=== PATIENT | female | born 1995 | race Caucasian/White ===

== ENCOUNTER 2017-11-22 11:50 | Inpatient (IN) | payer OTHER ==
[2017-11-22 12:57] LABS: ADD MAN DIFF? NO
[2017-11-22 12:59] LABS: WHITE BLOOD COUNT 6.5 10^3/ul (4.8-10.8)
[2017-11-22 12:59] LABS: BASOPHILS % 0.6 % (0.0-2.0); EOSINOPHILS # 0.1 10^3/ul (0.0-0.5); EOSINOPHILS % 0.9 % (0.0-7.0); HEMATOCRIT 35.5 % (37.0-47.0); HEMOGLOBIN 11.2 g/dl (12.0-16.0); LYMPHOCYTES % 30.9 % (15.0-51.0); MEAN CORPUSCULAR HEMOGLOBIN 25.2 pg (29.0-33.0); MEAN CORPUSCULAR HGB CONC 31.5 g/dl (32.0-37.0); MEAN PLATELET VOLUME 11.9 fl (7.4-10.4); MONOCYTE # 0.4 10^3/ul (0.3-0.9); MONOCYTES % 6.7 % (0.0-11.0); NEUTROPHIL # 3.9 10^3/ul (1.6-7.5); NEUTROPHILS % 60.3 % (39.0-77.0); PLATELET COUNT 168 10^3/UL (140-415); RED BLOOD COUNT 4.44 10^6/ul (4.20-5.40); RED CELL DISTRIBUTION WIDTH 13.9 % (11.5-14.5)
[2017-11-22] MEDS ORDERED: OXYTOCIN 30 UNITS/LR 500 ML IV (13:00)
[2017-11-22] MEDS ORDERED: METHYLERGONOVINE 0.2 MG INJ IM (13:00)
[2017-11-22] MEDS ORDERED: LIDOCAINE 1% (MPF) 30 ML INJ INJ (13:00)
[2017-11-22] MEDS ORDERED: BUTORPHANOL 2 MG INJ IV (13:00)
[2017-11-22] MEDS ORDERED: CARBOPROST 250 MCG INJ IM (13:00)
[2017-11-22] MEDS ORDERED: MISOPROSTOL 200 MCG TAB PR (13:00)
[2017-11-22] MEDS: LACTATED RINGER'S 1,000 ML IV ×5 (13:01→21:22)
[2017-11-22 13:28] LABS: PROTIME 12.2 Sec (11.9-14.9)
[2017-11-22 13:29] LABS: PARTIAL THROMBOPLASTIN TIME 26.3 Sec (25.0-35.0)
[2017-11-22 13:50] LABS: HEPATITIS B SURFACE ANTIGEN NEGATIVE (NEGATIVE)
[2017-11-22] MEDS ORDERED: FENTAnyl 2MCG/ML-ROPIV 0.2% 100 ML (13:57)
[2017-11-22] MEDS: OXYTOCIN 30 UNITS/LR 500 ML IV ×3 (17:13→22:43)
[2017-11-22 21:05] LABS: RAPID PLASMA REAGIN NONREACTIVE (NR)
[2017-11-22] MEDS: MINERAL OIL LIGHT 10 ML VIAL TOP (22:28)
[2017-11-23] MEDS: LACTATED RINGER'S 1,000 ML IV* ×3 (00:16→16:16)
[2017-11-23] MEDS ORDERED: OXYCODONE/ACETAMINOPHEN (5/325) TAB PO ×2 (00:30)
[2017-11-23] MEDS ORDERED: MISOPROSTOL 200 MCG TAB PR (00:30)
[2017-11-23] MEDS ORDERED: METHYLERGONOVINE 0.2 MG INJ IM (00:30)
[2017-11-23] MEDS ORDERED: CARBOPROST 250 MCG INJ IM (00:30)
[2017-11-23] MEDS ORDERED: OXYTOCIN 30 UNITS/LR 500 ML IV (00:30)
[2017-11-23] MEDS: IBUPROFEN 600 MG TAB PO ×4 (01:08→17:55)
[2017-11-23] MEDS: OXYTOCIN 30 UNITS/LR 500 ML IV (02:02)
[2017-11-23 08:32] LABS: ADD MAN DIFF? NO
[2017-11-23 08:34] LABS: BASOPHILS % 0.3 % (0.0-2.0); EOSINOPHILS # 0.1 10^3/ul (0.0-0.5); EOSINOPHILS % 0.9 % (0.0-7.0); HEMATOCRIT 31.4 % (37.0-47.0); HEMOGLOBIN 10.2 g/dl (12.0-16.0); LYMPHOCYTES # 1.9 10^3/ul (0.8-2.9); LYMPHOCYTES % 19.6 % (15.0-51.0); MEAN CORPUSCULAR HEMOGLOBIN 25.7 pg (29.0-33.0); MEAN CORPUSCULAR HGB CONC 32.5 g/dl (32.0-37.0); MEAN CORPUSCULAR VOLUME 79.1 fl (82.0-101.0); MEAN PLATELET VOLUME 11.7 fl (7.4-10.4); MONOCYTE # 0.6 10^3/ul (0.3-0.9); MONOCYTES % 6.2 % (0.0-11.0); NEUTROPHIL # 6.9 10^3/ul (1.6-7.5); NEUTROPHILS % 72.6 % (39.0-77.0); PLATELET COUNT 136 10^3/UL (140-415); RED BLOOD COUNT 3.97 10^6/ul (4.20-5.40); RED CELL DISTRIBUTION WIDTH 13.7 % (11.5-14.5)
[2017-11-23 08:34] LABS: WHITE BLOOD COUNT 9.5 10^3/ul (4.8-10.8)
[2017-11-23] MEDS: LANOLIN 7 GM TUBE TOP (08:45)
[2017-11-23] MEDS: BENZOCAINE 20% 56 ML SPRAY TOP (08:45)
[2017-11-23] MEDS: SENNA/DOCUSATE NA (8.6MG/50MG) TAB PO ×2 (08:46→21:10)
[2017-11-23] MEDS: WITCH HAZEL/GLYCERIN PAD PR (08:46)
[2017-11-24] MEDS: IBUPROFEN 600 MG TAB PO ×3 (00:37→12:16)
[2017-11-24] MEDS: BENZOCAINE 20% 56 ML SPRAY TOP (00:37)
[2017-11-24] MEDS: DIBUCAINE 1% 30 GM OINT PR (00:39)
[2017-11-24] MEDS: SENNA/DOCUSATE NA (8.6MG/50MG) TAB PO (08:33)
[2017-11-24] MEDS ORDERED: MEASLES,MUMPS,RUBELLA VACCINE INJ SC* (13:30)
[2017-11-24] MEDS: MEASLES,MUMPS,RUBELLA VACCINE INJ SC* (13:32)
== END 2017-11-24 14:15 | disposition home or self-care (01) | DRG 775 ==
LOC: OBT 11:50 → PP1 11-23 01:00 → L-D 11:51 → OBT 12:15 → L-D 12:15
PROVIDERS: Obstetrics & Gynecology
PROC: 10E0XZZ Delivery of Products of Conception, External Approach (ICD-10-PCS; principal; 2017-11-22)
PROC: 0HQ9XZZ Repair Perineum Skin, External Approach (ICD-10-PCS; 2017-11-22)
PROC: 4A1HXCZ Monitoring of Products of Conception, Cardiac Rate, External Approach (ICD-10-PCS; 2017-11-22)
PROC: 10H07YZ Insertion of Other Device into Products of Conception, Via Natural or Artificial Opening (ICD-10-PCS; 2017-11-22)
DX: O76 Abnormality in fetal heart rate and rhythm complicating labor and delivery (principal); O69.81X0 Labor and delivery complicated by cord around neck, without compression, not applicable or unspecified; O70.0 First degree perineal laceration during delivery; Z37.0 Single live birth; Z3A.38 38 weeks gestation of pregnancy
CPT/HCPCS: 62319; 76815; 85025; 85610; 85730; 86592; 86850; 86900; 86901; 87340